=== PATIENT | female | born 1965 | race Caucasian/White ===

== ENCOUNTER 2019-12-28 09:54 | Emergency (ER) | payer BC, SELFPAY ==
[2019-12-28] MEDS ORDERED: HYDROcodone/Acetaminophen 10/325 mg Tablet ONE (11:38)
[2019-12-28] MEDS ORDERED: Dexamethasone 4 MG TAB ONE (11:39)
[2019-12-28] MEDS ORDERED: Ibuprofen 800 MG TAB ONE (11:39)
== END 2019-12-28 11:59 | disposition home or self-care (01) ==
LOC: MADERS 09:54
DX: S83.91XA Sprain of unspecified site of right knee, initial encounter (principal); I10 Essential (primary) hypertension; E66.9 Obesity, unspecified; F17.210 Nicotine dependence, cigarettes, uncomplicated; X50.1XXA Overexertion from prolonged static or awkward postures, initial encounter
CPT/HCPCS: 99283; J8540